=== PATIENT | male | born 1965 | race Two or more races ===

== ENCOUNTER 2021-07-07 08:55 | Outpatient (CLI) | payer OTHER | END 2021-07-07 08:56 | disposition home or self-care (01) | LOC: SONOGRAMA 08:55 | PROVIDERS: ATTEND Pathology Anatomic Pathology & Clinical Pathology | DX: E04.2 Nontoxic multinodular goiter (principal) ==

== ENCOUNTER 2023-11-01 08:39 | Outpatient (CLI) | payer OTHER | END 2023-11-01 08:45 | disposition home or self-care (01) | LOC: SONOGRAMA 08:39 | PROVIDERS: ATTEND Pathology Anatomic Pathology & Clinical Pathology | DX: D34 Benign neoplasm of thyroid gland (principal); E07.89 Other specified disorders of thyroid; C73 Malignant neoplasm of thyroid gland ==

== ENCOUNTER 2024-11-27 08:08 | Outpatient (CLI) | payer OTHER | END 2024-11-27 08:14 | disposition home or self-care (01) | LOC: SONOGRAMA 08:08 | PROVIDERS: ATTEND Pathology Anatomic Pathology & Clinical Pathology | DX: D34 Benign neoplasm of thyroid gland (principal); E07.89 Other specified disorders of thyroid; C73 Malignant neoplasm of thyroid gland ==